=== PATIENT | female | born 1980 | race Caucasian/White ===

== ENCOUNTER 2018-02-16 07:52 | Emergency (ER) | payer SELFPAY ==
[~2018-02-16] VITALS: Ht 170.2 cm; Wt 164.8 kg
[2018-02-16 08:10] VITALS: Ht 170.2 cm; Wt 164.8 kg
[2018-02-16 10:33] VITALS: BP 138/82
== END 2018-02-16 10:33 | disposition home or self-care (01) ==
LOC: ED 07:52
DX: B34.9 Viral infection, unspecified (principal); F17.210 Nicotine dependence, cigarettes, uncomplicated; I10 Essential (primary) hypertension; Z98.890 Other specified postprocedural states; Z90.49 Acquired absence of other specified parts of digestive tract; Z98.51 Tubal ligation status; Z88.0 Allergy status to penicillin
CPT/HCPCS: 87804

== ENCOUNTER 2018-04-09 10:46 | Emergency (ER) | payer MEDICAID ==
[~2018-04-09] VITALS: Ht 167.6 cm; Wt 163.7 kg
[2018-04-09 11:02] VITALS: BP 156/106; Ht 167.6 cm; Wt 163.7 kg
== END 2018-04-09 11:48 | disposition home or self-care (01) ==
LOC: ED 10:46
DX: H60.11 Cellulitis of right external ear (principal); H60.91 Unspecified otitis externa, right ear; I10 Essential (primary) hypertension; Z90.49 Acquired absence of other specified parts of digestive tract; Z98.890 Other specified postprocedural states; Z98.51 Tubal ligation status; Z88.0 Allergy status to penicillin
CPT/HCPCS: 82962

== ENCOUNTER 2018-07-27 11:29 | Emergency (ER) | payer MEDICAID ==
[~2018-07-27] VITALS: Ht 170.2 cm; Wt 161.5 kg
[2018-07-27 11:48] VITALS: Ht 170.2 cm; Wt 161.5 kg
[2018-07-27 15:55] VITALS: BP 130/87
== END 2018-07-27 15:59 | disposition home or self-care (01) ==
LOC: ED 11:29
DX: J10.1 Influenza due to other identified influenza virus with other respiratory manifestations (principal); I10 Essential (primary) hypertension; E66.01 Morbid (severe) obesity due to excess calories; E07.9 Disorder of thyroid, unspecified; J34.89 Other specified disorders of nose and nasal sinuses; R50.9 Fever, unspecified; H53.8 Other visual disturbances; R51 Headache; Z68.43 Body mass index [BMI] 50.0-59.9, adult; Z90.49 Acquired absence of other specified parts of digestive tract; Z88.0 Allergy status to penicillin; Z98.51 Tubal ligation status
CPT/HCPCS: 87804

== ENCOUNTER 2018-07-28 08:53 | Emergency (ER) | payer MEDICAID ==
[~2018-07-28] VITALS: Ht 170.2 cm; Wt 160.8 kg
[2018-07-28 08:56] VITALS: Ht 170.2 cm; Wt 160.8 kg
[2018-07-28 10:15] LABS: BASOPHIL % 1.2 % (0-2); PLATELET COUNT 307 x10^3mcL (130-400)
[2018-07-28 10:19] LABS: RED CELL DISTRIBUTION WIDTH 15.3 % (11.5-14.5)
[2018-07-28 10:46] LABS: CALCIUM 8.4 mg/dL (8.5-10.1); CARBON DIOXIDE 32.4 mmol/L (21-32); CHLORIDE SERUM 102 mmol/L (98-107); CREATININE SERUM 0.8 mg/dL (0.6-1.0); GFR1 > 60 mL/min; GLUCOSE SERUM 102 mg/dL (74-106); POTASSIUM SERUM 3.7 mmol/L (3.5-5.1); SODIUM SERUM 138 mmol/L (136-145)
[2018-07-28 13:07] VITALS: BP 142/87
== END 2018-07-28 13:07 | disposition home or self-care (01) ==
LOC: ED 08:53
PROVIDERS: Emergency Medicine
DX: J10.1 Influenza due to other identified influenza virus with other respiratory manifestations (principal); I10 Essential (primary) hypertension; E03.9 Hypothyroidism, unspecified; E66.01 Morbid (severe) obesity due to excess calories; Z68.43 Body mass index [BMI] 50.0-59.9, adult; Z88.0 Allergy status to penicillin
CPT/HCPCS: J1885; J2930; J7030; J7613; J7644